=== PATIENT | female | born 1960 | race Caucasian/White ===

== ENCOUNTER 2018-02-09 00:31 | Inpatient (IN) | payer OTHER ==
[2018-02-09] VITALS (13 sets, daily range): BP systolic 94–159
[~2018-02-09] VITALS: Ht 144.8 cm; Wt 99.8 kg
--- NOTE | 2018-02-09 00:34 | NUR ---
Placed in room 01 . Placed on groundwater monitoring technician, blood pressure machine and pulse oximeter. To gown for exam. Side rails up. Report given to RN.
--- NOTE | 2018-02-09 00:35 | NUR ---
Patient arrived via EMS from [place] [id number]. EMS reports patient has been vomiting bright red blood 1 hour prior to arrival. Patient is AAO x 3. Patient reports that she was discharged from [facility] yesterday for esophageal bleed and discharged 02/08/18. Patient complaining of diffuse abdominal pain and headache with one episode of diarrhea today. Abdomen is round and distended. Skin is cool to touch and pale. Patient placed on O2 nasal cannula at 2L/min. Denies any pain at this time. No other complaints/injuries per patient or as noted. Will continue to monitor. Addendum: 02/09/18 at 0146 by [email or web address] Patient arrived witn 20 G to the left AC. No signs of infiltration. Will continue to monitor.
[2018-02-09] MEDS ORDERED: NACL 0.9% 1,000 ML IV ONE ×2 (00:36→00:45)
--- NOTE | 2018-02-09 00:37 | NUR ---
ER at bedside examining patient.
[2018-02-09] MEDS ORDERED: ONDANSETRON HCL 4 MG/2 ML VIAL IVP ONE (00:45)
[2018-02-09] MEDS ORDERED: MORPHINE 4 MG/ML INJ. SYRINGE IVP ONE (00:45)
--- NOTE | 2018-02-09 00:50 | NUR ---
Blood for labwork drawn from Right AC by Rn Training. Patient tolerated well
--- NOTE | 2018-02-09 01:00 | NUR ---
Patient transported to radiology via [place] accompanied by De Ayers and Mary GARDINER. Blood pressure after completing 1 liter of normal saline is 105/43 hr is 95bpm, respiration are 21 o2 saturation at 100% patient is on 2 liters nasal cannula.
[2018-02-09 01:19] LABS: BASOPHILS # (AUTO) 0.1 K/uL (0.0-0.2); BASOPHILS % (AUTO) 1.4 % (0.0-2.0); EOSINOPHILS # (AUTO) 0.3 K/uL (0.0-0.4); EOSINOPHILS % (AUTO) 4.1 % (0.0-4.0); HEMOGLOBIN 7.1 g/dL (12.0-16.0); LYMPHOCYTES # (AUTO) 1.8 K/uL (1.0-5.5); LYMPHOCYTES % (AUTO) 26.3 % (20.5-51.5); MEAN CORPUSCULAR HEMOGLOBIN 26 pg (27-31); MEAN CORPUSCULAR HGB CONC 33 % (32-36); MEAN CORPUSCULAR VOLUME 80 fL (79.0-98.0); MONOCYTES # (AUTO) 0.7 K/uL (0.0-1.0); MONOCYTES % (AUTO) 10.1 % (1.7-9.3); NEUTROPHILS # (AUTO) 4.1 K/uL (1.8-7.7); NEUTROPHILS % (AUTO) 58.1 % (40.0-70.0); PLATELET COUNT (AUTO) 113 K/uL (130-430); RED CELL DISTRIBUTION WIDTH 14.6 % (9.0-15.0)
[2018-02-09 01:24] LABS: HEMATOCRIT 21.7 % (36-48)
--- NOTE | 2018-02-09 01:25 | NUR ---
Chelsie from Lab called for critical value(s), Hct: 21.7 and Hgb: 7.1. MD Dr. Gamble notified.
[2018-02-09 01:33] LABS: INR 1.1 (0.8-1.2); PROTHROMBIN TIME 11.4 SECS (9.5-12.5)
--- NOTE | 2018-02-09 01:34 | NUR ---
Patient gave SO contact info, Alejo [phone]. Left a voicemail informing of her whereabouts.
--- NOTE | 2018-02-09 01:54 | NUR ---
2nd liter of 0.9 % normal saline completed. BP 130/78 hr 86 respiration 16 O2 saturation is 99%
--- NOTE | 2018-02-09 01:58 | NUR ---
Medication reconcilation unobtainable at this time. Patient does not recall her medications. Will endorse to the floor.
--- NOTE | 2018-02-09 02:00 | NUR ---
Patient states she is a full code.
[2018-02-09 02:02] LABS: CALCIUM 7.7 mg/dL (8.4-11.0); CREATININE 2.35 mg/dL (0.55-1.30); POTASSIUM 3.7 mmol/L (3.5-5.1)
--- NOTE | 2018-02-09 02:02 | NUR ---
Patient will be admitted to care of Dr. Lao. Admitted to Medical Surgical unit. Will go to room 112 B. Belongings list completed. Summary report printed. Report will be given at bedside.
[2018-02-09 02:06] LABS: BILIRUBIN,URINE NEGATIVE (NEGATIVE); BLOOD, URINE 3+ (NEGATIVE); CLARITY/URINE CLOUDY (CLEAR); COLOR,URINE YELLOW (YELLOW); GLUCOSE,URINE NEGATIVE (NEGATIVE); KETONES,URINE NEGATIVE (NEGATIVE); LEUKOCYTE ESTERASE ,URINE 3+ (NEGATIVE); NITRITE, URINE POSITIVE (NEGATIVE); PROTEIN URINE 2+ (NEGATIVE); UROBILINOGEN,URINE 0.2 (0.2-1.0)
[2018-02-09 02:08] LABS: ALBUMIN 2.4 g/dL (3.4-4.8); TOTAL BILIRUBIN 0.4 mg/dL (0.0-1.0)
[2018-02-09 02:19] LABS: RBC,URINE 50-80 /HPF (0-3); WBC,URINE >100 /HPF (0-3)
[2018-02-09 02:20] LABS: BACTERIA,URINE MODERATE /HPF (None Seen); MUCUS,URINE None Seen /LPF (None Seen); YEAST,URINE None Seen /HPF (None Seen)
--- NOTE | 2018-02-09 02:20 | NUR ---
Transfer to [facility]. IV present no sign or symptom of infiltration.
[2018-02-09 02:21] LABS: BENZODIAZEPINE, URINE POSITIVE (NEG <=150); METHAMPHETAMINES SCREEN,URINE POSITIVE (NEG <=500); OPIATE, URINE POSITIVE (NEG <=100); URINE AMPHETAMINE POSITIVE (NEG <=500)
[2018-02-09 02:22] LABS: BARBITURATE, URINE NEGATIVE (NEG <=200); CANNABINOID, URINE NEGATIVE (NEG <=50); COCAINE, URINE NEGATIVE (NEG <=150); PHENCYCLIDINE SCREEN,URINE NEGATIVE (NEG <=25); UR TRICYCLIC ANTIDEPRESSANTS NEGATIVE (NEG <=300); URINE METHADONE NEGATIVE (NEG <=200); URINE OXYCODONE SCREEN NEGATIVE (NEG <=100); URINE PROPOXYPHENE SCREEN NEGATIVE (NEG <=300)
[2018-02-09] MEDS ORDERED: cefTRIAXone 1 GM IVPB PREMIX 50 ML IV ONE (02:30)
--- NOTE | 2018-02-09 02:30 | NUR ---
ADMISSION NOTE Received patient from ER via gurney. Patient admitted with diagnosis of Upper GI Bleed. Patient is awake, alert, oriented X 3. Patient oriented to hospital room, call light, toileting, pain management and safety-teach back done. Patient informed that ZULEYKA Galvan will be primary nurse and that their room number is 112A. Personal belongings checked and Belongings List documented. Call light within reach.
[2018-02-09] MEDS: D5NS 1,000 ML IV SCH ×2 (02:45→17:39)
--- NOTE | 2018-02-09 04:05 | NUR ---
BT INITIATION: Consent signed per patient agreeing to administration of blood. Blood has been type and crossmatched. Blood sent from blood bank. Information on unit of blood checked against patient wristband at bedside by two nurses. All information matches. Patient or responsible constitution party informed of potential complications associated with blood transfusion. Informed of possible transfusion reaction symptoms. Aware of need to notify nurse at once of itching, shortness of breath, flushing, feeling of impending doom, or other symptoms not previously present. Vital signs taken within 5 minutes prior to initiation of transfusion. RN will remain with patient for first 15 minutes of transfusion at which time vital signs will be re-assessed.
--- NOTE | 2018-02-09 04:34 | NUR ---
CONSULTATION PAGED/CALLED Reason for Consultation: GI BLEED Person Who was Notified: CHUN Consulting Physician: DINH RADIO ANNOUNCER Authorization Nurse Specialty: GI Ordering Physician: VALDO
--- NOTE | 2018-02-09 05:10 | NUR ---
MD at bedside: Patient was seen by Dr. Lao. Plan of care was discussed, patient verbalized understanding. Call light is with patient. Will continue monitor.
[2018-02-09] MEDS ORDERED: POTASSIUM CHLORIDE 20 MEQ TAB.PRT.SR PO PRN (05:15)
[2018-02-09] MEDS ORDERED: MORPHINE 2 MG/ML INJ. SYRINGE IVP PRN (05:15)
[2018-02-09] MEDS ORDERED: ZOLPIDEM TARTRATE 5 MG TABLET PO PRN (05:15)
[2018-02-09] MEDS ORDERED: MUPIROCIN 2% TOPICAL OINTMENT 22 GM NS PRN (05:15)
[2018-02-09] MEDS ORDERED: LORazepam 2 MG/ML VIAL IVP PRN (05:15)
[2018-02-09] MEDS ORDERED: MAGNESIUM SULFATE 50 ML IV PRN (05:15)
[2018-02-09] MEDS ORDERED: DOCUSATE SODIUM 100 MG CAPSULE PO PRN (05:15)
[2018-02-09] MEDS ORDERED: ACETAMINOPHEN 325 MG TABLET PO PRN (05:15)
[2018-02-09] MEDS ORDERED: DEXTROSE 50% JECT 50 ML DISP.SYRIN IVP PRN (05:30)
--- NOTE | 2018-02-09 06:50 | NUR ---
Closing note: 1st unit of PRBC's completed transfusing at this time. No adverse reactions throughout duration of transfusion. Vital signs are stable. Patient shows no acute distress. All needs met and attended to. Will endorse care to dayshift RN.
--- NOTE | 2018-02-09 07:45 | NUR ---
INITIAL NOTE RECEIVED PATIENT FROM BOILER SHOP SUPERVISOR. PATIENT AWAKE IN BED. ALERT AND ORIENTED. DENIES PAIN. NO ACUTE DISTRESS. NO SOB. RESPIRATION EVEN AND UNLABORED. SKIN WARM AND DRY TO TOUCH. IV INTACT AND PATENT WITH NO S/SX INFECTION/INFILTRATION NOTED. BED IN LOW AND LOCKED POSITION. SIDERAIL UP X2. BED ALARM ON. CALL LIGHT IN REACH. CONT TO MONITOR.
--- NOTE | 2018-02-09 08:15 | NUR ---
BT INITIATION: Consent signed per patient agreeing to administration of blood. Blood has been type and crossmatched. Blood sent from blood bank. Information on unit of blood checked against patient wristband at bedside by two nurses. All information matches. Patient or responsible democrat informed of potential complications associated with blood transfusion. Informed of possible transfusion reaction symptoms. Aware of need to notify nurse at once of itching, shortness of breath, flushing, feeling of impending doom, or other symptoms not previously present. Vital signs taken within 5 minutes prior to initiation of transfusion. RN will remain with patient for first 15 minutes of transfusion at which time vital signs will be re-assessed.
--- NOTE | 2018-02-09 09:19 | NUR ---
PAGED PAGED ,[facility] AT [phone] SPOKE GALINDO CHIN.
[2018-02-09] MEDS: PANTOPRAZOLE SODIUM 40 MG/VIAL (PROTONIX) IVP SCH (09:22)
--- NOTE | 2018-02-09 09:34 | NUR ---
SPOKE TO . REPORTED TO MD THAT CIPRO WAS ORDERED AND PATIENT HAS ALLERGIES TO PCN, BEE VENOM AND CIPRO. RECEIVED NEW ORDER TO STOP CIPRO AND START ROCEPHIN 1 GM q24 IVPB; ORDER CLARIFIED AND VERIFIED WITH MD AND CARRIED OUT. CONT TO MONITOR.
[2018-02-09] MEDS ORDERED: CIPROFLOXACIN HCL 500 MG TABLET PO SCH (10:00)
--- NOTE | 2018-02-09 10:15 | NUR ---
BT COMPLETED BLOOD TRANSFUSION COMPLETED WITH NO S/SX ADVERSE EFFECTS. BP 131/59, HR 94, RR 18, TEMP 97.7, SpO2@96% ON RA. DENIES PAIN. DENIES SOB. NO ACUTE DISTRESS. RESPIRATION EVEN AND UNLABORED. SKIN WARM AND DRY TO TOUCH. ALL NEEDS MET. CALL LIGHT IN REACH. CONT TO MONITOR.
[2018-02-09 11:23] LABS: BASOPHILS % (AUTO) 0.9 % (0.0-2.0); EOSINOPHILS # (AUTO) 0.1 K/uL (0.0-0.4); EOSINOPHILS % (AUTO) 2.3 % (0.0-4.0); HEMATOCRIT 23.2 % (36-48); HEMOGLOBIN 7.1 g/dL (12.0-16.0); LYMPHOCYTES # (AUTO) 0.5 K/uL (1.0-5.5); LYMPHOCYTES % (AUTO) 11.8 % (20.5-51.5); MEAN CORPUSCULAR HEMOGLOBIN 25 pg (27-31); MEAN CORPUSCULAR HGB CONC 31 % (32-36); MEAN CORPUSCULAR VOLUME 82 fL (79.0-98.0); MONOCYTES # (AUTO) 0.5 K/uL (0.0-1.0); MONOCYTES % (AUTO) 11.9 % (1.7-9.3); NEUTROPHILS # (AUTO) 3.2 K/uL (1.8-7.7); NEUTROPHILS % (AUTO) 73.1 % (40.0-70.0); PLATELET COUNT (AUTO) 64 K/uL (130-430); RED BLOOD CELL COUNT(AUTO) 2.82 MIL/uL (4.2-6.2); RED CELL DISTRIBUTION WIDTH 15.3 % (9.0-15.0); WHITE BLOOD COUNT (AUTO) 4.3 K/uL (4.8-10.8)
--- NOTE | 2018-02-09 12:00 | NUR ---
NOTES ASSISTED PATIENT TO BATHROOM. PATIENT AMBULATED WITH SLOW STEADY GAIT. ALL NEEDS MET. CALL LIGHT IN REACH. CONT TO MONITOR.
--- NOTE | 2018-02-09 14:28 | NUR ---
Social Service Note: Pt referred to social service from caseworker. DATA REVIEWER met with pt at bedside; pt spoke about her need for community resources due to her homelessness. Pt states that she and her boyfriend have been homeless for about 2 years. DATA REVIEWER provided pt with homeless assistance resources, transportation resources, access application, outpatient mental health providers, local food [employer], local [facility], and listing of local motels. Pt has been staying in [address] but is looking for cheaper options. Pt denies any alcohol use, pt also denies any substance abuse, pt states that her neighbors do drugs and she is afraid their smoke is getting into her room and making her "high". Pt states that she will be speaking the hotel management when she returns. DATA REVIEWER has placed a homeless waiver in pt's chart to be signed upon discharge. DATA REVIEWER will remain available for support and will follow up as needed.
--- NOTE | 2018-02-09 15:01 | NUR ---
NOTES PATIENT AWAKE IN BED. DENIES PAIN. VITAL SIGN STABLE. NO ACUTE DISTRESS. NO SOB. ALL NEEDS MET. CALL LIGHT IN REACH. CONT TO MONITOR.
--- NOTE | 2018-02-09 18:44 | NUR ---
SPOKE TO ON PHONE. REPORTED TO MD AFTER 2 UNITS PRBC PATIENT HGB IS STILL 7.1 RECEIVED NEW ORDER FOR 1 UNIT PRBC AND TO CHECK LABS IN AM; ORDER CLARIFIED AND VERIFIED WITH MD.
--- NOTE | 2018-02-09 19:00 | NUR ---
CLOSING NOTE PATIENT AWAKE IN BED. DENIES PAIN. NO ACUTE DISTRESS. NO SOB. RESPIRATION EVEN AND UNLABORED. SKIN WARM AND DRY TO TOUCH. IV TO LAC INTACT AND PATENT WITH NO S/SX INFECTION/INFILTRATION NOTED. SAULO IV FLUIDS ORDERED. SKIN WARM AND DRY TO TOUCH. BED IN LOW AND LOCKED POSITION. SIDERAIL UPX2. ALL NEEDS MET. CALL LIGHT IN REACH. CONT TO MONITOR. WILL ENDORSE TO ONCOMING SHIFT.
--- NOTE | 2018-02-09 19:30 | NUR ---
Initial Notes Received handoff report from offgoing nurse at the bedside. Patient is awake and alert, resting comfortably in bed. No SOB, no acute distress, no complaints of pain at this time. Bed is locked, in the lowest position, 2x side rails up, bed alarm is on. Call light is within reach. Encouraged patient to call. Will continue with plan of care.
[2018-02-09] MEDS: MORPHINE 2 MG/ML INJ. SYRINGE IVP PRN (20:56)
--- NOTE | 2018-02-09 20:56 | NUR ---
Patient is yelling at staff member, stating that the HORTICULTURAL MANAGER called her a liar, and that she is allowed to drink water and have ice chips at this time. MD order is to keep the patient NPO, educated patient regarding NPO. Patient then stated that earlier today, a nurse "gave me some water, and it helps coagulate the bleeding. I am no longer bleeding. The doctor earlier said I can have some water, he was wearing a white coat." Patient cannot verbalize the name of the doctor or what the doctor looked like. However, informed the patient that the orders from the doctor are currently NPO. Patient was upset, calling staff members "liars," currently yelling. Patient is complaining of pain as well. Provided patient with morphine PRN for pain and Ativan PRN for anxiety, see eMAR for details.
[2018-02-09] MEDS ORDERED: OCTREOTIDE ACETATE 1,250 MCG in NS 250 ML IV SCH (23:00)
[2018-02-09] MEDS ORDERED: PANTOPRAZOLE SODIUM 40 MG in NS 50 ML IV SCH (23:00)
--- NOTE | 2018-02-09 23:45 | NUR ---
BT INITIATION: Consent signed per PATIENT agreeing to administration of blood. Blood has been type and crossmatched. Blood sent from blood bank. Information on unit of blood checked against patient wristband at bedside by two nurses. All information matches. Patient or responsible libertarian informed of potential complications associated with blood transfusion. Informed of possible transfusion reaction symptoms. Aware of need to notify nurse at once of itching, shortness of breath, flushing, feeling of impending doom, or other symptoms not previously present. Vital signs taken within 5 minutes prior to initiation of transfusion. RN will remain with patient for first 15 minutes of transfusion at which time vital signs will be re-assessed.
--- NOTE | 2018-02-10 00:45 | NUR ---
Patient is resting comfortably in bed with eyes closed. No SOB, no acute distress, no signs of pain or facial grimacing noted. Blood transfusion is still running, no signs of blood transfusion reactions at this time. Bed is locked, in the lowest position, 2x side rails up, bed alarm is on. Call light is within reach.
--- NOTE | 2018-02-10 02:10 | NUR ---
Blood transfusion is completed. VS is WNL. No signs of transfusion reaction noted.
[2018-02-10] MEDS: cefTRIAXone 1 GM in D5W 50 ML IV SCH (02:30)
[2018-02-10] MEDS ORDERED: cefTRIAXone 1 GM IVPB PREMIX 50 ML IV ONE (02:56)
--- NOTE | 2018-02-10 04:00 | NUR ---
Patient is resting comfortably in bed, awake. No SOB, no acute distress, no signs complaints of pain. Patient ambulated to the restroom and back to bed independently without assistance. Able to void urine, clear yellow in color. Bed is locked, in the lowest position, 2x side rails up, bed alarm turned on. Call light within reach. Encouraged patient to call. Also provided patient with oral swabs per patient request to moisten her lips.
--- NOTE | 2018-02-10 05:50 | NUR ---
Patient is awake and alert, resting comfortably in bed. No SOB, no acute distress, no complaints of pain at this time. Special Events Director at the bedside to draw labs. Patient tolerated procedure well. Call light within reach. Encouraged patient to call.
[2018-02-10 06:37] LABS: HEMATOCRIT 28.1 % (36-48); MEAN CORPUSCULAR HEMOGLOBIN 27 pg (27-31); MEAN CORPUSCULAR HGB CONC 32 % (32-36); MEAN CORPUSCULAR VOLUME 85 fL (79.0-98.0); PLATELET COUNT (AUTO) 62 K/uL (130-430); RED BLOOD CELL COUNT(AUTO) 3.31 MIL/uL (4.2-6.2); RED CELL DISTRIBUTION WIDTH 15.6 % (9.0-15.0); WHITE BLOOD COUNT (AUTO) 3.5 K/uL (4.8-10.8)
[2018-02-10 07:00] LABS: ALBUMIN 2.8 g/dL (3.4-4.8); CALCIUM 8.2 mg/dL (8.4-11.0); CREATININE 2.16 mg/dL (0.55-1.30); POTASSIUM 4.4 mmol/L (3.5-5.1); TOTAL BILIRUBIN 1.1 mg/dL (0.0-1.0)
--- NOTE | 2018-02-10 08:00 | NUR ---
initial notes rec patient awake alert with hob elevated ivf infusing well on the l ac. no infiltrationoted. npo maintianed fro egd today. ambulates with min assists to the br and zoila well. seen by dr dumas no sob noted.
[2018-02-10] MEDS ORDERED: PANTOPRAZOLE SODIUM 40 MG/VIAL (PROTONIX) ONE (09:36)
[2018-02-10] MEDS: PANTOPRAZOLE SODIUM 40 MG/VIAL (PROTONIX) IVP SCH ×2 (09:42→21:11)
[2018-02-10] MEDS: D5NS 1,000 ML IV SCH (09:43)
[2018-02-10 12:00] VITALS: BP_SYST 145
[2018-02-10] MEDS ORDERED: SIMETHICONE 40 MG/0.6 ML ML ONE (12:29)
[2018-02-10] MEDS ORDERED: MIDAZOLAM HCL 5 MG/5 ML VIAL ONE (12:29)
--- NOTE | 2018-02-10 12:30 | NUR ---
rounds pt was picked up for egd. npo maintained. no sob noted.
[2018-02-10 12:47] LABS: BAND % (MANUAL) 2 % (0-6); LYMPHOCYTES % (MANUAL) 20 % (20-46)
[2018-02-10 12:48] LABS: BASOPHILS % (MANUAL) 0 % (0-2); EOSINOPHILS % (MANUAL) 3 % (0-7); MONOCYTES % (MANUAL) 9 % (0-11)
[2018-02-10] MEDS: MEPERIDINE HCL/PF 100 MG/ML AMP ONE ×2 (13:05→13:07)
[2018-02-10] MEDS: MIDAZOLAM HCL 5 MG/5 ML VIAL ONE ×6 (13:05→13:19)
[2018-02-10] MEDS ORDERED: PROPRANOLOL HCL 10 MG TABLET (INDERAL) PO ONE (13:30)
[2018-02-10] MEDS ORDERED: PANTOPRAZOLE SODIUM 40 MG/VIAL (PROTONIX) IVP ONE (13:30)
--- NOTE | 2018-02-10 14:39 | NUR ---
Dietitian Recommendations * Consider advance to liquid diet if/when medically appropriate LP, RD Please refer to Nutrition Assessment for details.
[2018-02-10 16:00] VITALS: BP_SYST 149
[2018-02-10] MEDS: MORPHINE 2 MG/ML INJ. SYRINGE IVP PRN (18:52)
--- NOTE | 2018-02-10 19:00 | NUR ---
closing notes pt was assisted to the br and zoila well. sheets were changed and noted with small spots of blood on her buttoms sheets . endorsed to night nurse to observe small amount of bleeding. no sob noted. medicated for pain
[2018-02-10 19:20] VITALS: BP_SYST 136
--- NOTE | 2018-02-10 19:20 | NUR ---
Opening Notes Received bedside sbar report from lynette RNSuma. Patient is awake/alert/oriented, watching tv. No acute distress noted at this time. IV site noted to LAC 20 infusing D5NS @ 70ml/hr. No redness or signs of infiltration at this time. Introduced myself, updated whiteboard, discussed plan of care. Bed to lowest position, 3 side rails raised, call light within reach, bed alarm activated. Will continue to monitor patient.
--- NOTE | 2018-02-10 20:55 | NUR ---
Assisted patient to restroom then safely back to bed.
[2018-02-10] MEDS: PROPRANOLOL HCL 10 MG TABLET (INDERAL) PO SCH (21:10)
[2018-02-10] MEDS: ONDANSETRON HCL 4 MG/2 ML VIAL IVP PRN (21:11)
--- NOTE | 2018-02-10 21:19 | NUR ---
Blood Glucose : 152 (2u Novolog given per physician ordered sliding scale) Educated patient on s/s hypoglycemia. She verbalizes understanding.
[2018-02-10] MEDS: INSULIN ASPART 100 UNITS/ML, 10 ML VIAL (NovoLOG) SUBCUT PRN (21:21)
--- NOTE | 2018-02-10 23:05 | NUR ---
Rounds Patient is resting comfortably, eyes closed with no distress noted. Respirations are equal/non-labored @ 16/min. IV site is clean/dry/intact with no signs of infiltration. Bed to lowest position, 3 side rails raised, call light within reach, bed alarm activated. Will continue to monitor patient.
[2018-02-11 00:05] VITALS: BP_SYST 130
[2018-02-11] MEDS: D5NS 1,000 ML IV SCH ×2 (01:05→11:27)
[2018-02-11] MEDS: MORPHINE 2 MG/ML INJ. SYRINGE IVP PRN ×2 (01:05→08:03)
--- NOTE | 2018-02-11 01:05 | NUR ---
Pain Medication Patient complains of 7/10 abdominal pain. Administered morphine 2mg as ordered for severe pain. Will follow up to ensure effective pain management.
--- NOTE | 2018-02-11 01:15 | NUR ---
Assisted patient to restroom then safely back to bed.
[2018-02-11] MEDS: cefTRIAXone 1 GM in D5W 50 ML IV SCH (02:20)
--- NOTE | 2018-02-11 03:23 | NUR ---
Rounds Patient resting comfortably, eyes closed with no acute distress noted at this time. IV site is clean/dry/intact and infusing D5NS @70ml/hr as ordered. There are currently no signs of redness or infiltration. Bed to lowest position, 3 side rails raised, call light within reach, bed alarm activated. Will continue to monitor patient.
--- NOTE | 2018-02-11 05:20 | NUR ---
Rounds Patient resting comfortably, eyes closed with no acute distress noted at this time. Equal rise and fall of non-labored respirations / 17 per minute. IV site is clean/dry/intact and infusing D5NS @70ml/hr as ordered. There are currently no signs of redness or infiltration. Bed to lowest position, 3 side rails raised, call light within reach, bed alarm activated. Will continue to monitor patient.
--- NOTE | 2018-02-11 06:06 | NUR ---
Blood Glucose : 107 (No correction given per physician ordered sliding scale) Educated patient on s/s hypoglycemia. She verbalizes understanding.
--- NOTE | 2018-02-11 06:22 | NUR ---
Received call from Rubio with lab. He says multiple attempts were made to draw blood from patient with little return. He will wait until next adult care provider is available in about 40 minutes.
--- NOTE | 2018-02-11 07:20 | NUR ---
Closing Note Bedside SBAR report given to dayshift RNQue. Patient is resting, eyes closed with no acute distress noted. All needs/interventions/expectations met by nightshift RN. Transfer of care successful.
--- NOTE | 2018-02-11 07:45 | NUR ---
Initial note Received patient from night clerk auditor nurse, patient is currently resting in bed with eyes closed, no signs of distress noted, breathing is even and unlabored, patient has iv in left forearm with iv fluids infusing, no signs of infiltration noted, call wilkerson within reach, bed in lowest position, side rails up, fall precautions in place, will continue to monitor.
[2018-02-11 08:00] VITALS: BP_SYST 126
[2018-02-11] MEDS: PROPRANOLOL HCL 10 MG TABLET (INDERAL) PO SCH (08:02)
[2018-02-11] MEDS: PANTOPRAZOLE SODIUM 40 MG/VIAL (PROTONIX) IVP SCH (08:03)
[2018-02-11] MEDS: ONDANSETRON HCL 4 MG/2 ML VIAL IVP PRN (08:03)
--- NOTE | 2018-02-11 08:09 | NUR ---
Medications Client was given morning medications and pain medications, patient educated on potential side effects, patient verbalized understanding, no other needs at this time, will continue to monitor, fall precautions in place.
--- NOTE | 2018-02-11 10:15 | NUR ---
RN ROUNDS PATIENT RESTING IN BED, NO SIGNS OF DISTRESS NOTED, PATIENT AWARE OF DISCHARGE, PATIENT STATED SHE IS GOING TO CALL SOMEONE TO PICK HER UP AND SHE WILL NOTIFY STAFF OF TIME. CALL COLMENARES WITHIN REACH, WILL CONTINUE TO MONITOR.
[2018-02-11 11:41] VITALS: BP_SYST 130
[2018-02-11] MEDS: INSULIN ASPART 100 UNITS/ML, 10 ML VIAL (NovoLOG) SUBCUT PRN (11:52)
--- NOTE | 2018-02-11 11:53 | NUR ---
RN ROUNDS ACCUCHECK DONE, UV=760. 2 UNITS GIVEN PER PROTOCOL, PATIENT HAS NO COMPLAINTS OF PAIN OR DISCOMFORT AT THIS TIME, WILL CONTINUE TO MONITOR, FALL PRECAUTIONS IN PLACE.
[2018-02-11 12:50] VITALS: BP_SYST 130
[2018-02-11] MEDS ORDERED: PRO40 PO (12:54)
--- NOTE | 2018-02-11 14:36 | NUR ---
RN ROUNDS PATIENT RESTING IN BED, NO SIGNS OF DISTRESS NOTED, PATIENT HAS NO COMPLAINTS OF PAIN OR DISCOMFORT AT THIS TIME, WILL CONTINUE TO MONITOR.
--- NOTE | 2018-02-11 16:28 | NUR ---
D/C Patient Patient given medication reconciliation form and D/C instructions. Exit Care provided. Patient verbalized understanding. MD discussed with patient the results and treatment provided. Patient in stable condition, ID band removed. IV catheter removed, intact and dressing applied, no active bleeding. Rx of Protonix given. Patient educated on pain management. All belongings sent with patient.
[2018-02-11 16:41] VITALS: BP_SYST 134
== END 2018-02-11 16:30 | disposition home or self-care (01) | DRG 280 ==
LOC: SED 00:31 → SMU 02:07
PROVIDERS: ADMIT General Practice; ATTEND General Practice
PROC: 30233N1 Transfusion of Nonautologous Red Blood Cells into Peripheral Vein, Percutaneous Approach (ICD-10-PCS; principal; 2018-02-09)
PROC: 06L38CZ Occlusion of Esophageal Vein with Extraluminal Device, Via Natural or Artificial Opening Endoscopic (ICD-10-PCS; 2018-02-10)
PROC: 0W3P8ZZ Control Bleeding in Gastrointestinal Tract, Via Natural or Artificial Opening Endoscopic (ICD-10-PCS; 2018-02-10)
DX: K70.31 Alcoholic cirrhosis of liver with ascites (principal); N17.0 Acute kidney failure with tubular necrosis; D61.818 Other pancytopenia; E44.0 Moderate protein-calorie malnutrition; K76.6 Portal hypertension; D69.59 Other secondary thrombocytopenia; E11.22 Type 2 diabetes mellitus with diabetic chronic kidney disease; Z68.42 Body mass index [BMI] 45.0-49.9, adult; I85.10 Secondary esophageal varices without bleeding; I10 Essential (primary) hypertension; B19.20 Unspecified viral hepatitis C without hepatic coma; R74.0 Nonspecific elevation of levels of transaminase and lactic acid dehydrogenase [LDH]; N39.0 Urinary tract infection, site not specified; F12.90 Cannabis use, unspecified, uncomplicated; F15.90 Other stimulant use, unspecified, uncomplicated; K31.89 Other diseases of stomach and duodenum; Z87.11 Personal history of peptic ulcer disease; Z88.0 Allergy status to penicillin; Z88.1 Allergy status to other antibiotic agents; Z91.030 Bee allergy status; D64.9 Anemia, unspecified
CPT/HCPCS: 36415; 43244; 71045; 80053; 80307; 81000-TC; 82140-TC; 82150-TC; 82550-TC; 82962; 83036; 83605; 83690-TC; 83735-TC; 84484; 85007; 85025; 85027; 85610-TC; 85730-TC; 86886; 86900; 86901; 86920; 87040-TC; 87081; 87086; 96361; 96365; 96375; 99285; C9113; G0482; J0696; J1815; J2060; J2175; J2250; J2270; J2405; J7040; J7042; J7060; P9021

== ENCOUNTER 2018-03-15 23:15 | Emergency (ER) | payer OTHER ==
[~2018-03-15] VITALS: Ht 147.3 cm; Wt 98.4 kg
[~2018-03-15 23:15] MED LIST: PRO40 PO
[2018-03-15 23:20] VITALS: BP_SYST 131
--- NOTE | 2018-03-15 23:27 | NUR ---
Patient to ER bed 4 to gown for evaluation. Side rails up.
[2018-03-15] MEDS ORDERED: NACL 0.9% 1,000 ML IV ONE (23:38)
--- NOTE | 2018-03-15 23:39 | NUR ---
ER Dr. Garcia at bedside examining patient.
[2018-03-15] MEDS ORDERED: ONDANSETRON HCL 4 MG/2 ML VIAL IVP ONE (23:45)
--- NOTE | 2018-03-16 00:01 | NUR ---
Medication was given, pt tolerated well. no adverse reaction, will continue to monitor.
--- NOTE | 2018-03-16 00:03 | NUR ---
Pt went to radiology in stable condition.
[2018-03-16 00:06] LABS: HEMATOCRIT 28.3 % (36-48); HEMOGLOBIN 9.1 g/dL (12.0-16.0); MEAN CORPUSCULAR HEMOGLOBIN 26 pg (27-31); MEAN CORPUSCULAR HGB CONC 32 % (32-36); MEAN CORPUSCULAR VOLUME 81 fL (79.0-98.0); PLATELET COUNT (AUTO) 86 K/uL (130-430); RED BLOOD CELL COUNT(AUTO) 3.49 MIL/uL (4.2-6.2); RED CELL DISTRIBUTION WIDTH 15.5 % (9.0-15.0); WHITE BLOOD COUNT (AUTO) 2.9 K/uL (4.8-10.8)
--- NOTE | 2018-03-16 00:15 | NUR ---
Pt returned from radiology in stable condition.
[2018-03-16 00:17] LABS: CALCIUM 7.8 mg/dL (8.4-11.0); CREATININE 1.85 mg/dL (0.55-1.30); POTASSIUM 3.5 mmol/L (3.5-5.1)
[2018-03-16 00:23] LABS: ALBUMIN 2.5 g/dL (3.4-4.8); TOTAL BILIRUBIN 0.4 mg/dL (0.0-1.0)
[2018-03-16 00:25] LABS: PROTHROMBIN TIME 10.5 SECS (9.5-12.5)
[2018-03-16 00:29] LABS: CLARITY/URINE CLOUDY (CLEAR); COLOR,URINE RED (YELLOW); GLUCOSE,URINE NEGATIVE (NEGATIVE); KETONES,URINE NEGATIVE (NEGATIVE); PROTEIN URINE 1+ (NEGATIVE)
[2018-03-16 00:30] LABS: BILIRUBIN,URINE NEGATIVE (NEGATIVE); BLOOD, URINE 3+ (NEGATIVE); LEUKOCYTE ESTERASE ,URINE 2+ (NEGATIVE); NITRITE, URINE NEGATIVE (NEGATIVE); UROBILINOGEN,URINE 0.2 (0.2-1.0)
[2018-03-16 00:35] LABS: RBC,URINE >100 /HPF (0-3)
[2018-03-16 00:36] LABS: BASOPHILS % (MANUAL) 0 % (0-2); EOSINOPHILS % (MANUAL) 6 % (0-7); LYMPHOCYTES % (MANUAL) 22 % (20-46); MONOCYTES % (MANUAL) 11 % (0-11)
[2018-03-16 00:36] LABS: BACTERIA,URINE MODERATE /HPF (None Seen); MUCUS,URINE None Seen /LPF (None Seen); WBC,URINE 20-50 /HPF (0-3); YEAST,URINE None Seen /HPF (None Seen)
[2018-03-16] MEDS ORDERED: MORPHINE 2 MG/ML INJ. SYRINGE IVP ONE (01:00)
[2018-03-16] MEDS ORDERED: cefTRIAXone 1 GM IVPB PREMIX 50 ML IV ONE (01:00)
--- NOTE | 2018-03-16 01:25 | NUR ---
Pt resting comfortably in hospital bed. No acute distress, will continue to monitor.
--- NOTE | 2018-03-16 02:59 | NUR ---
Pt resting comfortably in hospital bed. No acute distress. Will continue to monitor.
--- NOTE | 2018-03-16 03:15 | NUR ---
Pt sleeping comfortably in hospital bed. No acute distress. Will continue to monitor.
--- NOTE | 2018-03-16 04:11 | NUR ---
Pt sleeping comfortably in hospital bed. No acute distress. Will continue to monitor.
--- NOTE | 2018-03-16 05:30 | NUR ---
Pt sleeping comfortably in hospital bed. No acute distress. Will continue to monitor.
[2018-03-16 06:16] VITALS: BP_SYST 132
--- NOTE | 2018-03-16 06:16 | NUR ---
Patient given written and verbal discharge instructions and verbalizes understanding. ER MD discussed with patient the results and treatment provided. Patient in stable condition. ID arm band removed. IV catheter removed intact and dressing applied, no active bleeding. Rx of Bactrim given. Patient educated on pain management and to follow up with PMD. Pain Scale 0. Opportunity for questions provided and answered. Medication side effect fact sheet provided.
== END 2018-03-16 06:16 | disposition home or self-care (01) ==
LOC: SED 23:15
DX: N39.0 Urinary tract infection, site not specified (principal); R31.9 Hematuria, unspecified; I10 Essential (primary) hypertension; R03.0 Elevated blood-pressure reading, without diagnosis of hypertension; E11.9 Type 2 diabetes mellitus without complications; Z87.442 Personal history of urinary calculi; Z86.19 Personal history of other infectious and parasitic diseases; Z87.891 Personal history of nicotine dependence; Z88.0 Allergy status to penicillin; Z88.1 Allergy status to other antibiotic agents; Z88.5 Allergy status to narcotic agent; Z88.6 Allergy status to analgesic agent; Z91.030 Bee allergy status
CPT/HCPCS: 36415; 74176; 80053; 81000; 81025; 82150; 83690; 85007; 85027; 85610; 85730; 87086; 87186; 96365; 96375; 99284; J0696; J2270; J2405; J7030; 85025